=== PATIENT | female | born 1955 | race African-American/Black ===

== ENCOUNTER 2018-12-02 01:34 | Inpatient (IN) | payer OTHER ==
[~2018-12-02] VITALS: Ht 165.1 cm; Wt 68.9 kg
[2018-12-02] MEDS ORDERED: ONDANSETRON HCL 4MG/2ML INJ IV STA (01:42)
[2018-12-02] MEDS ORDERED: LABETALOL 5MG/ML SYR 20 MG/4 ML SYRINGE IV ONE (01:45)
[2018-12-02 01:58] LABS: BASOPHILS % 1.4 % (0.0-2.0); EOSINOPHILS % 2.6 % (0.0-5.0); HEMATOCRIT. 24.2 % (36.0-48.0); LYMPHOCYTES % 15.6 % (20.0-50.0); MEAN CORPUSCULAR HEMOGLOBIN 28.4 pg (28.0-32.0); MEAN CORPUSCULAR VOLUME 86.2 fL (81.0-99.0); MEAN PLATELET VOLUME 7.6 fl (7.4-10.4); MONOCYTES % 7.2 % (2.0-8.0); NEUTROPHILS % 73.2 % (40.0-76.0); PLATELET 316 x1000/uL (130-400); RED BLOOD CELL COUNT 2.81 mill/uL (4.2-5.4); RED CELL DISTRIBUTION WIDTH 17.4 % (11.6-14.6)
[2018-12-02 02:02] LABS: CHLORIDE 106 mEq/L (98-107)
[2018-12-02 08:00] VITALS: BP 158/75
[2018-12-02] MEDS ORDERED: DEXTROSE 50% WATER 50ML SYRINGE IV PRN (08:15)
[2018-12-02] MEDS ORDERED: ACETAMINOPHEN 325MG TABLET PO PRN (08:15)
[2018-12-02] MEDS ORDERED: ONDANSETRON HCL 4MG/2ML INJ IV PRN (08:15)
[2018-12-02] MEDS ORDERED: CLONIDINE 0.1MG TABLET PO PRN (08:15)
[2018-12-02] MEDS: INSULIN LISPRO 100 UNITS/ML SUBCUT SCH ×2 (08:32→13:19)
[2018-12-02] MEDS ORDERED: ATENOLOL 50 MG TABLET PO SCH (09:00)
[2018-12-02] MEDS ORDERED: ASPIRIN 81MG TABLET PO SCH (09:00)
[2018-12-02] MEDS ORDERED: AMLODIPINE 10MG TABLET PO SCH (09:00)
[2018-12-02] MEDS: BLOOD SUGAR DIAGNOSTIC STRIP TEST SCH ×2 (09:28→11:59)
[2018-12-02 09:43] LABS: TOTAL IRON BINDING CAPACITY 187 ug/dL (250-450)
[2018-12-02 10:00] VITALS: BP 160/90
[2018-12-02 11:42] LABS: HEPATITIS B SURFACE AB 4.9 mIU/mL
[2018-12-02 11:52] LABS: HEPATITIS B SURFACE ANTIGEN NEGATIVE
[2018-12-02 12:00] VITALS: BP 192/76
[2018-12-02 12:22] LABS: HEPATITIS A AB IGM NEGATIVE (NEGATIVE)
[2018-12-02] MEDS ORDERED: SEVELAMER CARBONATE 800 MG TABLET PO SCH (13:00)
[2018-12-02] MEDS ORDERED: HYDRALAZINE HCL 50MG TABLET PO SCH (14:00)
[2018-12-02 16:00] VITALS: BP 135/78
[2018-12-02] MEDS ORDERED: VITAMIN D (16:01)
[2018-12-02] MEDS ORDERED: FUROSEMIDE (16:01)
[2018-12-02] MEDS ORDERED: SEVE800T8 MT (16:01)
[2018-12-02] MEDS ORDERED: AMLODIPINE (16:01)
[2018-12-02] MEDS ORDERED: ATENOLOL (16:01)
[2018-12-02] MEDS ORDERED: HYDRALAZINE (16:01)
[2018-12-02] MEDS ORDERED: ASPI-1158 PO (16:01)
[2018-12-02] MEDS ORDERED: POTASSIUM (16:01)
[2018-12-02] MEDS ORDERED: CLONIDINE (16:01)
[2018-12-02 16:15] VITALS: BP 135/78
[2018-12-02] MEDS ORDERED: EPOETIN ALFA 10000UNITS/ML VIAL SUBCUT SCH (21:00)
== END 2018-12-02 17:43 | disposition short-term general hospital (02) | DRG 304 ==
LOC: ER 01:34 → 5EST 03:06 → EDBEDREQ 03:15 → EDBEDREQTM 03:15 → EDBEDREQSVC 03:15 → ENRESERV 03:45
PROVIDERS: ADMIT Internal Medicine; ATTEND Internal Medicine
PROC: 5A09357 Assistance with Respiratory Ventilation, Less than 24 Consecutive Hours, Continuous Positive Airway Pressure (ICD-10-PCS; principal; 2018-12-02)
DX: I16.1 Hypertensive emergency (principal); J96.00 Acute respiratory failure, unspecified whether with hypoxia or hypercapnia; E43 Unspecified severe protein-calorie malnutrition; N18.6 End stage renal disease; J90 Pleural effusion, not elsewhere classified; N17.9 Acute kidney failure, unspecified; I13.11 Hypertensive heart and chronic kidney disease without heart failure, with stage 5 chronic kidney disease, or end stage renal disease; E87.6 Hypokalemia; E11.22 Type 2 diabetes mellitus with diabetic chronic kidney disease; D64.9 Anemia, unspecified; Z88.8 Allergy status to other drugs, medicaments and biological substances; Z68.25 Body mass index [BMI] 25.0-25.9, adult; Z90.49 Acquired absence of other specified parts of digestive tract; Z98.51 Tubal ligation status
CPT/HCPCS: 36415; 71045; 82728; 82962; 83540; 83550; 83880; 84484; 86705; 86706; 86709; 86803; 87340; 93005; 94660; 96374; 96375; 99291; J0885; J1815; J2405; J3490

== ENCOUNTER 2019-01-28 00:20 | Inpatient (IN) | payer OTHER ==
[2019-01-28] VITALS (78 sets, daily range): BP systolic 87–192; BP diastolic 55–95
[~2019-01-28] VITALS: Ht 165.1 cm; Wt 62.7 kg
[~2019-01-28 00:20] MED LIST: AMLODIPINE; ASPI-1158 PO; ATENOLOL; CLONIDINE; FUROSEMIDE; HYDRALAZINE; POTASSIUM; SEVE800T8 MT; VITAMIN D
[2019-01-28] MEDS ORDERED: NITROGLYCERIN 50MG PREMIX 250 ML IV ONE (00:30)
[2019-01-28] MEDS ORDERED: ONDANSETRON HCL 4MG/2ML INJ IV STA (00:30)
[2019-01-28] MEDS ORDERED: MORPHINE SULFATE 4 MG/ML CPJ (NOT FOR IM USE) IV STA (00:30)
[2019-01-28] MEDS ORDERED: ETOMIDATE 2MG/ML 10ML VIAL IV ONE ×2 (00:30)
[2019-01-28] MEDS ORDERED: PROPOFOL 10MG/ML 100ML 100 ML IV ONE (00:30)
[2019-01-28] MEDS ORDERED: SUCCINYLCHOLINE CHLORIDE 200MG/10ML IV ONE ×2 (00:30)
[2019-01-28 01:01] LABS: BG BASE EXCESS -13.1 mmol/L (-2.0-2.0); BG CARBOXYHEMOGLOBIN 1.4 % (0.5-1.5); BG DEOXYHEMOGLOBIN 1.8 % (0.0-5.0); BG FRACTION INSPIRED OXYGEN 100; BG HCO3 ACT 16.3 mmol/L (22.0-26.0); BG METHEMOGLOBIN 0.4 % (0.0-1.5); BG OXYGEN SATURATION 98.2 % (92.0-98.5); BG OXYHEMOGLOBIN 96.4 % (94.0-97.0); BG PCO2 51.6 mmHg (35.0-45.0); BG PH 7.118 (7.350-7.450); BG PO2 145.9 mmHg (75.0-100.0); BG SAMPLE SITE RIGHT BRACHIAL; BG TIDAL VOLUME(mL) 500 mL; BG TOTAL HEMOGLOBIN 13.8 g/dL (12.0-18.0); BG VENT MODE VENT - A/C; BG VENT RATE 15 set
[2019-01-28 01:10] LABS: BASOPHILS % 0.6 % (0.0-2.0); EOSINOPHILS % 1.6 % (0.0-5.0); HEMATOCRIT. 40.2 % (36.0-48.0); HEMOGLOBIN. 12.8 g/dL (12.0-16.0); LYMPHOCYTES % 17.5 % (20.0-50.0); MEAN CORPUSCULAR HEMOGLOBIN 30.6 pg (28.0-32.0); MEAN CORPUSCULAR VOLUME 96.5 fL (81.0-99.0); MEAN PLATELET VOLUME 8.6 fl (7.4-10.4); MONOCYTES % 5.2 % (2.0-8.0); NEUTROPHILS % 75.1 % (40.0-76.0); PLATELET 222 x1000/uL (130-400); RED BLOOD CELL COUNT 4.16 mill/uL (4.2-5.4)
[2019-01-28] MEDS ORDERED: METOCLOPRAMIDE HCL 10MG/2ML VIAL IV ONE (01:15)
[2019-01-28 01:19] LABS: CHLORIDE 106 mEq/L (98-107)
[2019-01-28] MEDS ORDERED: MIDAZOLAM HCL 50 MG in DEXTROSE 5% WATER 40 ML IV ONE ×2 (03:00→05:15)
[2019-01-28] MEDS: MIDAZOLAM HCL 50 MG in DEXTROSE 5% WATER 40 ML IV PRN ×2 (03:44→03:51)
[2019-01-28] MEDS ORDERED: FENTANYL CITRATE/PF 500 MCG in SODIUM CHLORIDE 0.9% 40 ML IV PRN ×3 (04:00→11:00)
[2019-01-28] MEDS ORDERED: HYDROMORPHONE HCL/PF 2MG/ML CPJ IV PRN (06:00)
[2019-01-28] MEDS ORDERED: IPRATROPIUM/ALBUTEROL 0.5-3(2.5)MG/3ML NEB INH PRN (06:00)
[2019-01-28] MEDS ORDERED: LEVOFLOXACIN 500MG PREMIX 100 ML IV SCH (06:00)
[2019-01-28] MEDS ORDERED: ACETAMINOPHEN 325MG TABLET PO PRN (06:00)
[2019-01-28] MEDS ORDERED: DEXTROSE 50% WATER 50ML SYRINGE IV PRN (06:00)
[2019-01-28] MEDS ORDERED: GUAIFENESIN 200MG/10ML SUGAR FREE UDC PO PRN (06:00)
[2019-01-28] MEDS ORDERED: MAGNESIUM/ALUMINUM HYDROXIDE/SIMETHICONE 30ML UDC PO PRN (06:00)
[2019-01-28] MEDS ORDERED: ONDANSETRON HCL 4MG/2ML INJ IV PRN (06:00)
[2019-01-28] MEDS ORDERED: NA PHOS,M-B/NA PHOS,DI-BA ENEMA 118ML PR PRN (06:00)
[2019-01-28] MEDS ORDERED: DIPHENHYDRAMINE 50MG/ML VIAL IV PRN (06:00)
[2019-01-28] MEDS ORDERED: DOCUSATE SODIUM 100MG CAPSULE PO PRN (06:00)
[2019-01-28] MEDS ORDERED: HYDROCODONE/ACETAMINOPHEN 10/325MG TABLET PO PRN (06:00)
[2019-01-28] MEDS ORDERED: LORAZEPAM 2MG/ML CPJ IV PRN (06:00)
[2019-01-28] MEDS ORDERED: LEVOFLOXACIN 500MG PREMIX 100 ML IV ONE (06:42)
[2019-01-28 06:43] LABS: CREATINE KINASE MB FRACTION 25.8 ng/mL (0.5-3.6)
[2019-01-28] MEDS ORDERED: ENOXAPARIN 30MG/0.3ML SYR SUBCUT SCH (09:00)
[2019-01-28] MEDS: ASPIRIN 81MG EC TABLET PO SCH (09:00)
[2019-01-28] MEDS ORDERED: NOREPINEPHRINE 16 MG in DEXT 5% WATER 484 ML IV PRN (09:15)
[2019-01-28] MEDS ORDERED: DOPAMINE 800MG PREMIX (DOUBLE) 250 ML IV PRN (09:15)
[2019-01-28] MEDS ORDERED: HEPARIN SODIUM 1,000 UNIT/1ML VIAL IV NR (09:45)
[2019-01-28] MEDS ORDERED: NOREPINEPHRINE 32 MG in DEXT 5% WATER 468 ML IV PRN (10:00)
[2019-01-28] MEDS: BLOOD SUGAR DIAGNOSTIC STRIP TEST SCH ×4 (10:00→21:00)
[2019-01-28] MEDS: INSULIN LISPRO 100 UNITS/ML SUBCUT SCH ×4 (10:07→21:00)
[2019-01-28] MEDS: CEFEPIME 1,000 MG in DEXTROSE 5% WATER 50 ML IV SCH (12:09)
[2019-01-28] MEDS: METRONIDAZOLE 500 MG PREMIX 100 ML IV SCH (12:09)
[2019-01-28] MEDS: HYDRALAZINE 20MG/ML VIAL IV PRN ×2 (12:54→17:22)
[2019-01-28 13:05] LABS: BG BASE EXCESS -1.4 mmol/L (-2.0-2.0); BG CARBOXYHEMOGLOBIN 0.8 % (0.5-1.5); BG DEOXYHEMOGLOBIN 0.3 % (0.0-5.0); BG HCO3 ACT 21.5 mmol/L (22.0-26.0); BG METHEMOGLOBIN 0.3 % (0.0-1.5); BG OXYGEN SATURATION 99.7 % (92.0-98.5); BG OXYHEMOGLOBIN 98.6 % (94.0-97.0); BG PCO2 31.3 mmHg (35.0-45.0); BG PH 7.455 (7.350-7.450); BG PO2 283.6 mmHg (75.0-100.0); BG SAMPLE SITE RIGHT BRACHIAL; BG TIDAL VOLUME(mL) 500 mL; BG TOTAL HEMOGLOBIN 14.4 g/dL (12.0-18.0); BG VENT MODE VENT - A/C; BG VENT RATE 16 set
[2019-01-28] MEDS: SODIUM CHLORIDE 0.9% INJ 3ML FLUSH IVF SCH ×2 (14:00→22:00)
[2019-01-28 15:15] LABS: CREATINE KINASE MB FRACTION 61.7 ng/mL (0.5-3.6)
[2019-01-28] MEDS: CLONIDINE 0.1MG TABLET PO PRN (15:22)
[2019-01-28] MEDS: IPRATROPIUM/ALBUTEROL 0.5-3(2.5)MG/3ML NEB HHN SCH ×2 (17:00→20:44)
[2019-01-28] MEDS ORDERED: CARVEDILOL 6.25 MG TABLET PO NR (17:45)
[2019-01-28] MEDS ORDERED: HEPARIN 5000 UNITS/ML VIAL IV PRN (17:45)
[2019-01-28] MEDS ORDERED: HEPARIN 5000 UNITS/ML VIAL IV NR (17:45)
[2019-01-28] MEDS ORDERED: MELA1LIQ PO (18:59)
[2019-01-28] MEDS ORDERED: ASCO100T12 MT (18:59)
[2019-01-28 19:52] LABS: PARTIAL THROMBOPLASTIN TIME 29.7 sec (23.4-31.0); PROTHROMBIN TIME 10.5 sec (9.6-11.0)
[2019-01-28] MEDS: ATORVASTATIN CALCIUM 40MG TABLET PO SCH (20:17)
[2019-01-28] MEDS: HEPARIN 25,000 UNITS PREMIX 500 ML IV PRN (20:33)
[2019-01-28] MEDS ORDERED: FENTANYL CITRATE/PF 1,000 MCG in SODIUM CHLORIDE 0.9% 80 ML IV PRN ×2 (22:43→23:00)
[2019-01-29] VITALS (88 sets, daily range): BP systolic 96–197; BP diastolic 43–165
[2019-01-29] MEDS: METRONIDAZOLE 500 MG PREMIX 100 ML IV SCH ×2 (00:35→13:23)
[2019-01-29] MEDS: IPRATROPIUM/ALBUTEROL 0.5-3(2.5)MG/3ML NEB HHN SCH ×3 (01:37→21:45)
[2019-01-29] MEDS: HYDRALAZINE 20MG/ML VIAL IV PRN ×2 (03:12→13:14)
[2019-01-29] MEDS: HEPARIN 5000 UNITS/ML VIAL IV PRN ×2 (03:13→16:31)
[2019-01-29 05:48] LABS: BASOPHILS % 0.5 % (0.0-2.0); EOSINOPHILS % 0.4 % (0.0-5.0); HEMATOCRIT. 36.8 % (36.0-48.0); HEMOGLOBIN. 12.2 g/dL (12.0-16.0); MEAN CORPUSCULAR HEMOGLOBIN 31.1 pg (28.0-32.0); MEAN CORPUSCULAR VOLUME 93.7 fL (81.0-99.0); MEAN PLATELET VOLUME 9.7 fl (7.4-10.4); MONOCYTES % 11.9 % (2.0-8.0); NEUTROPHILS % 77.2 % (40.0-76.0); PLATELET 174 x1000/uL (130-400); RED BLOOD CELL COUNT 3.92 mill/uL (4.2-5.4); RED CELL DISTRIBUTION WIDTH 18.6 % (11.6-14.6)
[2019-01-29] MEDS: SODIUM CHLORIDE 0.9% INJ 3ML FLUSH IVF SCH ×3 (06:00→21:31)
[2019-01-29 06:11] LABS: CHLORIDE 101 mEq/L (98-107)
[2019-01-29 06:23] LABS: LDL CHOLESTEROL 126 mg/dL (5-100)
[2019-01-29 06:26] LABS: T4 FREE 1.52 ng/dL (0.76-1.46)
[2019-01-29 06:27] LABS: HDL CHOLESTEROL 71 mg/dL (40-59)
[2019-01-29] MEDS: BLOOD SUGAR DIAGNOSTIC STRIP TEST SCH ×4 (06:30→21:31)
[2019-01-29] MEDS: INSULIN LISPRO 100 UNITS/ML SUBCUT SCH ×4 (07:00→21:00)
[2019-01-29 08:03] LABS: BG BASE EXCESS -3.1 mmol/L (-2.0-2.0); BG CARBOXYHEMOGLOBIN 0.8 % (0.5-1.5); BG DEOXYHEMOGLOBIN 0.4 % (0.0-5.0); BG FRACTION INSPIRED OXYGEN 50; BG HCO3 ACT 19.5 mmol/L (22.0-26.0); BG METHEMOGLOBIN 0.3 % (0.0-1.5); BG OXYGEN SATURATION 99.6 % (92.0-98.5); BG OXYHEMOGLOBIN 98.5 % (94.0-97.0); BG PCO2 28.4 mmHg (35.0-45.0); BG PH 7.454 (7.350-7.450); BG PO2 268.7 mmHg (75.0-100.0); BG SAMPLE SITE RIGHT BRACHIAL; BG TIDAL VOLUME(mL) 500 mL; BG TOTAL HEMOGLOBIN 13.8 g/dL (12.0-18.0); BG VENT MODE VENT - A/C; BG VENT RATE 16 set
[2019-01-29] MEDS ORDERED: HEPARIN SODIUM 1,000 UNIT/1ML VIAL IV NR (08:45)
[2019-01-29] MEDS: CARVEDILOL 6.25 MG TABLET PO SCH (09:00)
[2019-01-29] MEDS: ASPIRIN 81MG EC TABLET PO SCH (09:00)
[2019-01-29] MEDS ORDERED: MIDAZOLAM HCL 100 MG in DEXT 5% WATER 80 ML IV PRN (10:30)
[2019-01-29 12:30] LABS: BG BASE EXCESS 0.4 mmol/L (-2.0-2.0); BG CARBOXYHEMOGLOBIN 1.1 % (0.5-1.5); BG DEOXYHEMOGLOBIN 0.7 % (0.0-5.0); BG FRACTION INSPIRED OXYGEN 40; BG METHEMOGLOBIN 0.3 % (0.0-1.5); BG OXYGEN SATURATION 99.3 % (92.0-98.5); BG OXYHEMOGLOBIN 97.9 % (94.0-97.0); BG PCO2 40.7 mmHg (35.0-45.0); BG PH 7.407 (7.350-7.450); BG PO2 174.8 mmHg (75.0-100.0); BG PRESSURE SUPPORT 8; BG SAMPLE SITE RIGHT BRACHIAL; BG TOTAL HEMOGLOBIN 14.1 g/dL (12.0-18.0); BG VENT MODE VENT - CPAP
[2019-01-29] MEDS: CEFEPIME 1,000 MG in DEXTROSE 5% WATER 50 ML IV SCH (12:37)
[2019-01-29] MEDS: FAMOTIDINE 20MG/2ML VIAL IV SCH (13:11)
[2019-01-29] MEDS: ATORVASTATIN CALCIUM 40MG TABLET PO SCH (21:31)
[2019-01-30] VITALS (61 sets, daily range): BP systolic 109–175; BP diastolic 48–122
[2019-01-30] MEDS: METRONIDAZOLE 500 MG PREMIX 100 ML IV SCH ×2 (00:06→12:50)
[2019-01-30] MEDS: HEPARIN 25,000 UNITS PREMIX 500 ML IV PRN (01:32)
[2019-01-30] MEDS: IPRATROPIUM/ALBUTEROL 0.5-3(2.5)MG/3ML NEB HHN SCH ×4 (02:10→20:22)
[2019-01-30 05:36] LABS: BASOPHILS % 0.9 % (0.0-2.0); EOSINOPHILS % 0.5 % (0.0-5.0); HEMATOCRIT. 39.8 % (36.0-48.0); HEMOGLOBIN. 12.9 g/dL (12.0-16.0); MEAN CORPUSCULAR HEMOGLOBIN 30.6 pg (28.0-32.0); MEAN CORPUSCULAR VOLUME 94.6 fL (81.0-99.0); MEAN PLATELET VOLUME 9.4 fl (7.4-10.4); MONOCYTES % 12.3 % (2.0-8.0); NEUTROPHILS % 72.3 % (40.0-76.0); PLATELET 185 x1000/uL (130-400); RED BLOOD CELL COUNT 4.21 mill/uL (4.2-5.4); RED CELL DISTRIBUTION WIDTH 18.5 % (11.6-14.6)
[2019-01-30] MEDS: INSULIN LISPRO 100 UNITS/ML SUBCUT SCH ×4 (06:26→20:37)
[2019-01-30] MEDS: BLOOD SUGAR DIAGNOSTIC STRIP TEST SCH ×4 (06:26→20:37)
[2019-01-30] MEDS: SODIUM CHLORIDE 0.9% INJ 3ML FLUSH IVF SCH ×3 (06:26→22:02)
[2019-01-30] MEDS: HEPARIN 5000 UNITS/ML VIAL IV PRN (07:06)
[2019-01-30 08:41] LABS: BG BASE EXCESS -1.9 mmol/L (-2.0-2.0); BG CARBOXYHEMOGLOBIN 0.9 % (0.5-1.5); BG DEOXYHEMOGLOBIN 3.6 % (0.0-5.0); BG FRACTION INSPIRED OXYGEN 21; BG HCO3 ACT 22.5 mmol/L (22.0-26.0); BG METHEMOGLOBIN 0.2 % (0.0-1.5); BG OXYGEN SATURATION 96.4 % (92.0-98.5); BG OXYHEMOGLOBIN 95.3 % (94.0-97.0); BG PCO2 37.4 mmHg (35.0-45.0); BG PH 7.398 (7.350-7.450); BG PO2 88.9 mmHg (75.0-100.0); BG SAMPLE SITE RIGHT BRACHIAL; BG TOTAL HEMOGLOBIN 12.3 g/dL (12.0-18.0); BG VENT MODE ROOM AIR
[2019-01-30] MEDS: CARVEDILOL 6.25 MG TABLET PO SCH (08:53)
[2019-01-30] MEDS: FAMOTIDINE 20MG/2ML VIAL IV SCH (08:53)
[2019-01-30] MEDS: ASPIRIN 81MG EC TABLET PO SCH (08:53)
[2019-01-30] MEDS ORDERED: LEVOFLOXACIN 250MG PREMIX 50 ML IV SCH (09:00)
[2019-01-30] MEDS: CEFEPIME 1,000 MG in DEXTROSE 5% WATER 50 ML IV SCH (12:13)
[2019-01-30] MEDS: CLONIDINE 0.1MG TABLET PO PRN (16:53)
[2019-01-30] MEDS: ATORVASTATIN CALCIUM 40MG TABLET PO SCH (20:37)
== END 2019-01-30 23:55 | disposition short-term general hospital (02) | DRG 871 ==
LOC: ER 00:20 → MICUSO 00:54 → EDBEDREQTM 00:57 → EDBEDREQ 00:57 → ENRESERV 07:09
PROVIDERS: ADMIT Internal Medicine; ATTEND Internal Medicine
PROC: 5A1945Z Respiratory Ventilation, 24-96 Consecutive Hours (ICD-10-PCS; principal; 2019-01-28)
PROC: 0BH17EZ Insertion of Endotracheal Airway into Trachea, Via Natural or Artificial Opening (ICD-10-PCS; 2019-01-28)
PROC: 5A1D70Z Performance of Urinary Filtration, Intermittent, Less than 6 Hours Per Day (ICD-10-PCS; 2019-01-28)
PROC: 5A1D70Z Performance of Urinary Filtration, Intermittent, Less than 6 Hours Per Day (ICD-10-PCS; 2019-01-29)
PROC: 5A1D70Z Performance of Urinary Filtration, Intermittent, Less than 6 Hours Per Day (ICD-10-PCS; 2019-01-30)
DX: A41.9 Sepsis, unspecified organism (principal); G93.41 Metabolic encephalopathy; I50.33 Acute on chronic diastolic (congestive) heart failure; J69.0 Pneumonitis due to inhalation of food and vomit; I21.4 Non-ST elevation (NSTEMI) myocardial infarction; J96.00 Acute respiratory failure, unspecified whether with hypoxia or hypercapnia; N18.6 End stage renal disease; E43 Unspecified severe protein-calorie malnutrition; M62.82 Rhabdomyolysis; I13.2 Hypertensive heart and chronic kidney disease with heart failure and with stage 5 chronic kidney disease, or end stage renal disease; J84.9 Interstitial pulmonary disease, unspecified; E87.2 Acidosis; E87.5 Hyperkalemia; E78.5 Hyperlipidemia, unspecified; E11.22 Type 2 diabetes mellitus with diabetic chronic kidney disease; Z99.2 Dependence on renal dialysis; Z68.23 Body mass index [BMI] 23.0-23.9, adult; Z78.1 Physical restraint status; Z79.82 Long term (current) use of aspirin; Z79.899 Other long term (current) drug therapy; Z88.8 Allergy status to other drugs, medicaments and biological substances
CPT/HCPCS: 31500; 36415; 36600; 71045; 80048; 80061; 82375; 82550; 82553; 82805; 82962; 83605; 83880; 84439; 84443; 84484; 93005; 93970; 94002; 94003; 94640; 99291; J0330; J0360; J0692; J1200; J1265; J1644; J1650; J1815; J1956; J2250; J2270; J2405; J2704; J2765; J3010; J3490; J7050; J7060; J7620

== ENCOUNTER 2021-11-22 10:05 | Emergency (ER) | payer OTHER ==
[~2021-11-22] VITALS: Ht 165.1 cm; Wt 60.0 kg
[~2021-11-22 10:05] MED LIST changes: +ASCO100T12 MT; -ASPI-1158 PO; +ASPI-1406 PO; +MELA1LIQ PO
[2021-11-22] MEDS ORDERED: LABETALOL HCL VIAL 20 MG/4 ML VIAL IV ONE (10:45)
[2021-11-22] MEDS ORDERED: NITROGLYCERIN OINT 1GM/INCH UDPKT TD ONE (10:45)
[2021-11-22] MEDS ORDERED: FUROSEMIDE 40MG/4ML VIAL IV ONE (10:45)
[2021-11-22] MEDS ORDERED: HYDRALAZINE 20MG/ML VIAL IV ONE (11:00)
[2021-11-22 11:16] LABS: CHLORIDE 101 mEq/L (98-107)
[2021-11-22 11:17] LABS: BASOPHILS % 0.7 % (0.0-2.0); EOSINOPHILS % 2.2 % (0.0-5.0); HEMATOCRIT. 31.8 % (36.0-48.0); HEMOGLOBIN. 10.5 g/dL (12.0-16.0); LYMPHOCYTES % 12.4 % (20.0-50.0); MEAN CORPUSCULAR HEMOGLOBIN 31.4 pg (28.0-32.0); MONOCYTES % 7.2 % (2.0-8.0); NEUTROPHILS % 77.5 % (40.0-76.0); PLATELET 221 x1000/uL (130-400); RED BLOOD CELL COUNT 3.35 mill/uL (4.2-5.4)
[2021-11-22] MEDS ORDERED: POTASSIUM CHLORIDE 20MEQ TABLET SR PO ONE (11:45)
[2021-11-22] MEDS ORDERED: ATENOLOL 25MG TABLET PO ONE (11:45)
[2021-11-22 13:00] VITALS: BP 171/81
== END 2021-11-22 15:40 | disposition left against medical advice (07) ==
LOC: ER 10:05
DX: J96.91 Respiratory failure, unspecified with hypoxia (principal); I25.2 Old myocardial infarction; I10 Essential (primary) hypertension; E11.9 Type 2 diabetes mellitus without complications; E87.6 Hypokalemia; Z79.899 Other long term (current) drug therapy
CPT/HCPCS: 36415; 71045; 80053; 83880; 84484; 85025; 93005; 93970; 96374; 96375; 99291; J0360; J1940; J3490